=== PATIENT | male | born 1975 | race Caucasian/White ===

== ENCOUNTER → 2016-05-23 | Outpatient (CLI) | payer MEDICARE, MEDICAID | END | disposition home or self-care (01) | LOC: CFH 11:52 | PROVIDERS: ATTEND Physician Assistant | DX: J92.9 Pleural plaque without asbestos (principal) | CPT/HCPCS: 71020 ==

== ENCOUNTER → 2016-05-29 | Outpatient (CLI) | payer MEDICARE, MEDICAID | END | disposition home or self-care (01) | LOC: CFH 08:28 | PROVIDERS: ATTEND Physician Assistant | DX: J98.4 Other disorders of lung (principal); J92.9 Pleural plaque without asbestos; M43.22 Fusion of spine, cervical region; M25.78 Osteophyte, vertebrae; Z87.891 Personal history of nicotine dependence | CPT/HCPCS: 71260 ==

== ENCOUNTER 2016-07-04 16:06 | Inpatient (IN) | payer MEDICARE, MEDICAID ==
[~2016-07-04] VITALS: Ht 175.3 cm; Wt 124.8 kg
[2016-07-04] MEDS ORDERED: AMLO10TA2 PO (16:45)
[2016-07-04] MEDS ORDERED: BENA40TA2 PO (16:45)
[2016-07-04] MEDS ORDERED: METO-95 PO (16:45)
[2016-07-04] MEDS ORDERED: HYDR-3307 PO (16:47)
[2016-07-04] MEDS ORDERED: TOPI50TA35 PO (16:47)
[2016-07-04] MEDS ORDERED: CYCL-259 PO (16:47)
[2016-07-04] MEDS ORDERED: OXYC30TA74 PO (16:47)
[2016-07-04] MEDS ORDERED: SODIUM CHLORIDE FLUSH 10ML SYR IVF ONE (17:00)
[2016-07-04 17:16] LABS: ASPARTATE AMINO TRANSFERASE 24 U/L (15-37); BLOOD UREA NITROGEN 12 mg/dL (7-18)
[2016-07-04 17:21] LABS: IS PT STATUS REG ER OR PRE ER? YES
[2016-07-04] MEDS ORDERED: ASPIRIN 81 MG TABLET CHEW ONE (17:28)
[2016-07-04] MEDS ORDERED: ASPIRIN 81 MG TABLET CHEW PO ONE (17:30)
[2016-07-04] MEDS: OxyconTIN ER 15 MG TAB.ER PO SCH ×2 (18:00→20:42)
[2016-07-04] MEDS ORDERED: DIPHENHYDRAMINE 50 MG/ML, 1ML IVPush ONE (18:30)
[2016-07-04] MEDS ORDERED: hydrALAzine 20 MG/ML, 1ML IV PRN (18:30)
[2016-07-04] MEDS ORDERED: BISACODYL 10 MG SUPP PR PRN (18:30)
[2016-07-04] MEDS ORDERED: methylPREDNISolone SOD SUCC 125 MG/2 ML IVPush ONE (18:30)
[2016-07-04] MEDS ORDERED: POLYETHYLENE GLYCOL 17 GM PACKET PO PRN (18:30)
[2016-07-04] MEDS ORDERED: NITROGLYCERIN 0.4 MG BOTTLE (25 TABS) SL PRN (18:30)
[2016-07-04] MEDS ORDERED: ACETAMINOPHEN 325 MG TABLET PO PRN (18:30)
[2016-07-04] MEDS ORDERED: ONDANSETRON 2MG/ML, 2ML IVPush PRN (18:30)
[2016-07-04] MEDS ORDERED: DIPHENHYDRAMINE 50 MG/ML, 1ML ONE (19:13)
[2016-07-04] MEDS ORDERED: HEPARIN 5,000 UNITS/ML, 1ML ONE (19:13)
[2016-07-04] MEDS ORDERED: methylPREDNISolone SOD SUCC 125 MG/2 ML ONE (19:13)
[2016-07-04] MEDS ORDERED: CYCLOBENZAPRINE 10 MG TABLET ONE (19:13)
[2016-07-04] MEDS: CYCLOBENZAPRINE 10 MG TABLET PO SCH ×2 (19:19→21:00)
[2016-07-04] MEDS: HEPARIN 5,000 UNITS/ML, 1ML SQ SCH (19:19)
[2016-07-04 20:00] VITALS: BP 146/98
[2016-07-04] MEDS ORDERED: OMNIPAQUE 350 MG/ML, 100ML BOTTLE ONE (20:56)
[2016-07-04] MEDS: SODIUM CHLORIDE FLUSH 3ML SYRINGE IVF SCH (21:00)
[2016-07-04] MEDS: SODIUM CHLORIDE FLUSH 10ML SYR IVF PRN (21:47)
[2016-07-04] MEDS: METOPROLOL SUCCINATE 100 MG TAB.ER.24H PO SCH (21:47)
[2016-07-05 00:15] LABS: IS PT STATUS REG ER OR PRE ER? NO
[2016-07-05 00:53] VITALS: BP 127/70
[2016-07-05] MEDS: HEPARIN 5,000 UNITS/ML, 1ML SQ SCH ×2 (03:00→11:00)
[2016-07-05] MEDS: OxyconTIN ER 15 MG TAB.ER PO SCH ×2 (03:55→14:00)
[2016-07-05] MEDS ORDERED: ASPIRIN 81 MG TABLET EC PO SCH (06:00)
[2016-07-05 06:24] VITALS: BP 122/76
[2016-07-05 06:30] LABS: ASPARTATE AMINO TRANSFERASE 19 U/L (15-37); BLOOD UREA NITROGEN 16 mg/dL (7-18)
[2016-07-05 06:36] LABS: IS PT STATUS REG ER OR PRE ER? NO
[2016-07-05] MEDS ORDERED: AMLODIPINE 5 MG TABLET PO SCH (09:00)
[2016-07-05] MEDS ORDERED: FLUTICASONE/VILANTEROL 100-25MCG/INH INH SCH (09:00)
[2016-07-05] MEDS ORDERED: SENNA/DOCUSATE TABLET PO SCH (09:00)
[2016-07-05] MEDS: SODIUM CHLORIDE FLUSH 3ML SYRINGE IVF SCH (09:00)
[2016-07-05] MEDS ORDERED: BENAZEPRIL 20 MG TABLET PO SCH (09:00)
[2016-07-05] MEDS ORDERED: TOPIRAMATE 25 MG TABLET PO SCH (09:00)
[2016-07-05] MEDS: morphine SULFATE 10 MG/ML, 1ML IVPush PRN ×2 (10:14→13:59)
[2016-07-05] MEDS: SODIUM CHLORIDE FLUSH 10ML SYR IVF PRN (10:16)
[2016-07-05] MEDS: CYCLOBENZAPRINE 10 MG TABLET PO SCH ×2 (10:16→15:12)
[2016-07-05] MEDS: METOPROLOL SUCCINATE 100 MG TAB.ER.24H PO SCH (10:17)
[2016-07-05] MEDS ORDERED: REGADENOSON 0.4 MG/5 ML SYRINGE ONE (11:21)
[2016-07-05 13:55] VITALS: BP 143/88
[2016-07-05] MEDS ORDERED: FLUT1AER INH (15:03)
== END 2016-07-05 16:45 | disposition home or self-care (01) | DRG 194 ==
LOC: ED 16:57 → EDIP 17:33 → 5SO 20:09 → DCLOUNGE 07-05 16:21
PROVIDERS: ADMIT Internal Medicine; ATTEND Internal Medicine
DX: J92.9 Pleural plaque without asbestos (principal); Z68.41 Body mass index [BMI] 40.0-44.9, adult; E11.9 Type 2 diabetes mellitus without complications; E78.00 Pure hypercholesterolemia, unspecified; E78.5 Hyperlipidemia, unspecified; G47.33 Obstructive sleep apnea (adult) (pediatric); I11.9 Hypertensive heart disease without heart failure; M19.90 Unspecified osteoarthritis, unspecified site; E66.9 Obesity, unspecified; Z87.891 Personal history of nicotine dependence; Z98.1 Arthrodesis status; Z87.01 Personal history of pneumonia (recurrent); Z90.49 Acquired absence of other specified parts of digestive tract; Z84.1 Family history of disorders of kidney and ureter; Z82.49 Family history of ischemic heart disease and other diseases of the circulatory system; Z83.3 Family history of diabetes mellitus
CPT/HCPCS: 36415; 71020; 71260; 78452; 80053; 80061; 82962; 83735; 84439; 84443; 84484; 85025; 93005; 93017; 96374; 96375; J1644; J2785; Q9967; A9502; C9898; J1200; J2270; J2930

== ENCOUNTER → 2016-08-14 | Outpatient (CLI) | payer MEDICARE, MEDICAID ==
[~2016-08-14] MED LIST: AMLO10TA2 PO; BENA40TA2 PO; CYCL-259 PO; FLUT1AER INH; HYDR-3307 PO; METO-95 PO; OXYC30TA74 PO; TOPI50TA35 PO
== END | disposition home or self-care (01) ==
LOC: PETCFH 13:05
PROVIDERS: ATTEND Internal Medicine Critical Care Medicine
DX: J94.9 Pleural condition, unspecified (principal)
CPT/HCPCS: 78815; A9552

== ENCOUNTER → 2016-09-24 | Outpatient (CLI) | payer MEDICARE, MEDICAID | END | disposition home or self-care (01) | LOC: CARD 13:40 | PROVIDERS: ATTEND Internal Medicine Critical Care Medicine | DX: R06.02 Shortness of breath (principal) | CPT/HCPCS: 94060; 94726; 94729 ==

== ENCOUNTER 2017-01-09 11:05 | Emergency (ER) | payer MEDICARE ==
[~2017-01-09] VITALS: Ht 177.8 cm; Wt 127.8 kg
[~2017-01-09 11:05] MED LIST changes: +GABA800T2 PO; +IBUP-1222 PO; +OXYC1TAB7 PO; +TOPI25CA7 PO
[2017-01-09 11:07] VITALS: BP 168/114
[2017-01-09] MEDS ORDERED: LIDOCAINE 1%, 20ML SQ ONE (11:30)
[2017-01-09] MEDS ORDERED: LIDOCAINE 1%, 20ML ONE (11:31)
[2017-01-09] MEDS ORDERED: BACITRACIN ZINC OINT 500U/GM, 0.9 GM ONE (11:57)
== END 2017-01-09 12:04 | disposition home or self-care (01) ==
LOC: ED 11:19
DX: S61.216A Laceration without foreign body of right little finger without damage to nail, initial encounter (principal); E78.00 Pure hypercholesterolemia, unspecified; E11.9 Type 2 diabetes mellitus without complications; I10 Essential (primary) hypertension; M19.90 Unspecified osteoarthritis, unspecified site; Z87.891 Personal history of nicotine dependence; W22.8XXA Striking against or struck by other objects, initial encounter; Y93.89 Activity, other specified; Y92.098 Other place in other non-institutional residence as the place of occurrence of the external cause; Y99.8 Other external cause status
CPT/HCPCS: 12001; 99283; J3490

== ENCOUNTER → 2017-01-17 | Outpatient (CLI) | payer MEDICARE, MEDICAID ==
[~2017-01-17] MED LIST changes: +REGADENOSON 0.4 MG/5 ML SYRINGE ONE
== END | disposition home or self-care (01) ==
LOC: RAD 08:59
PROVIDERS: ATTEND Physician Assistant
DX: R07.9 Chest pain, unspecified (principal); I10 Essential (primary) hypertension; E11.9 Type 2 diabetes mellitus without complications; G89.29 Other chronic pain; G93.2 Benign intracranial hypertension; F32.89 Other specified depressive episodes
CPT/HCPCS: 78452; 93017; A9502; J2785

== ENCOUNTER → 2017-03-06 | Outpatient (CLI) | payer MEDICARE, MEDICAID ==
[~2017-03-06] MED LIST changes: -REGADENOSON 0.4 MG/5 ML SYRINGE ONE; +TOPI25CA12 PO; -TOPI25CA7 PO
[2017-03-06 13:03] LABS: ALBUMIN 3.5 g/dL (3.4-5.0); BILIRUBIN, DIRECT 0.1 mg/dL (0.1-0.2); BILIRUBIN,INDIRECT 0.3 mg/dL (0.0-2.0); BILIRUBIN,TOTAL 0.4 mg/dL (0.2-1.0); TOTAL PROTEIN 7.1 g/dL (6.4-8.2)
== END | disposition home or self-care (01) ==
LOC: CFH 08:45
PROVIDERS: ATTEND Physician Assistant
DX: Z13.220 Encounter for screening for lipoid disorders (principal); Z12.11 Encounter for screening for malignant neoplasm of colon; Z12.5 Encounter for screening for malignant neoplasm of prostate; G89.29 Other chronic pain; G93.2 Benign intracranial hypertension; I10 Essential (primary) hypertension; E55.9 Vitamin D deficiency, unspecified; F32.89 Other specified depressive episodes; R53.83 Other fatigue; E11.9 Type 2 diabetes mellitus without complications; R51 Headache; R68.84 Jaw pain; G47.09 Other insomnia; R93.0 Abnormal findings on diagnostic imaging of skull and head, not elsewhere classified; M79.672 Pain in left foot; R01.1 Cardiac murmur, unspecified; R60.9 Edema, unspecified; R07.9 Chest pain, unspecified; J30.9 Allergic rhinitis, unspecified; R91.8 Other nonspecific abnormal finding of lung field; J92.9 Pleural plaque without asbestos; Z48.02 Encounter for removal of sutures; E78.5 Hyperlipidemia, unspecified; R79.9 Abnormal finding of blood chemistry, unspecified; Z71.89 Other specified counseling
CPT/HCPCS: 36415; 80076

== ENCOUNTER → 2017-08-28 | Outpatient (CLI) | payer MEDICARE, MEDICAID ==
[~2017-08-28] MED LIST changes: +FENTANYL PF 100 MCG/2ML ONE; +FLUMAZENIL 0.1 MG/1 ML, 5ML ONE; +MIDAZOLAM 1 MG/ML, 5ML ONE; +NALOXONE 1 MG/ML, 2ML ONE
== END | disposition home or self-care (01) ==
LOC: RAD 10:06
PROVIDERS: ATTEND Nurse Practitioner Family
DX: M50.10 Cervical disc disorder with radiculopathy, unspecified cervical region (principal); M48.02 Spinal stenosis, cervical region; M50.23 Other cervical disc displacement, cervicothoracic region; M51.34 Other intervertebral disc degeneration, thoracic region
CPT/HCPCS: 72141; 72146; 99156; 99157; J2250; J3010; J2310

== ENCOUNTER 2018-07-21 10:19 | Emergency (ER) | payer MEDICARE, MEDICAID ==
[~2018-07-21] VITALS: Ht 177.8 cm; Wt 128.0 kg
[~2018-07-21 10:19] MED LIST changes: -AMLO10TA2 PO; +AMLO10TA8 PO; -BENA40TA2 PO; +BENA40TA3 PO; -FENTANYL PF 100 MCG/2ML ONE; -FLUMAZENIL 0.1 MG/1 ML, 5ML ONE; -GABA800T2 PO; +GABA800T5 PO; -MIDAZOLAM 1 MG/ML, 5ML ONE; -NALOXONE 1 MG/ML, 2ML ONE
--- NOTE | 2018-07-21 11:46 | NUR ---
FROM LOBBY TO ROOM AT THIS TIME
--- NOTE | 2018-07-21 12:06 | NUR ---
PT IN BED RESTING. DENIES NEEDS AT THIS TIME. SET UP ON MONITOR.
--- NOTE | 2018-07-21 12:17 | NUR ---
BEDSIDE SWALLOW EVAL DONE AT THIS TIME. PT PASSED. WILL CONTINUE TO MONITOR.
[2018-07-21 13:19] VITALS: BP 154/79
== END 2018-07-21 13:29 | disposition home or self-care (01) ==
LOC: ED 12:36
DX: R20.2 Paresthesia of skin (principal); G89.29 Other chronic pain; E78.5 Hyperlipidemia, unspecified; E78.00 Pure hypercholesterolemia, unspecified; I10 Essential (primary) hypertension; E11.9 Type 2 diabetes mellitus without complications; Z90.89 Acquired absence of other organs; Z87.891 Personal history of nicotine dependence; Z98.61 Coronary angioplasty status
CPT/HCPCS: 93005; 99283